=== PATIENT | male | born 1950 | race Caucasian/White ===

== ENCOUNTER 2021-07-26 06:00 | Day surgery (SDC) | payer OTHER, SELFPAY ==
[~2021-07-26] VITALS: Ht 177.8 cm; Wt 102.1 kg
[2021-07-26] MEDS ORDERED: fentaNYL CITRATE/PF 100 MCG/2 ML AMP ONE (06:55)
[2021-07-26] MEDS ORDERED: MIDAZOLAM HCL 5 MG/5 ML VIAL ONE (06:56)
[2021-07-26 10:19] VITALS: BP_SYST 126
== END 2021-07-26 08:30 | disposition home or self-care (01) ==
LOC: SDS 06:00 → SMU 06:00 → SDS 08:30
PROVIDERS: ATTEND Internal Medicine Gastroenterology
DX: I85.10 Secondary esophageal varices without bleeding (principal); B19.20 Unspecified viral hepatitis C without hepatic coma; K31.9 Disease of stomach and duodenum, unspecified; Z20.822 Contact with and (suspected) exposure to COVID-19; Z79.899 Other long term (current) drug therapy
CPT/HCPCS: 43239; 43244; 82962; 88305; 88312; 88313; 99152; G0378; J2250; J3010; U0003

== ENCOUNTER 2022-04-06 05:40 | Day surgery (SDC) | payer OTHER ==
[~2022-04-06] VITALS: Ht 177.8 cm; Wt 102.1 kg
[2022-04-06] MEDS ORDERED: MEPERIDINE 100 MG INJ. 100 MG/ML VIAL ONE (07:26)
[2022-04-06] MEDS ORDERED: MIDAZOLAM HCL 5 MG/5 ML VIAL ONE (07:27)
[2022-04-06] MEDS ORDERED: DIPHENHYDRAMINE INJ 50 MG/ML VIAL ONE (08:20)
[2022-04-06 10:07] VITALS: BP_SYST 140
== END 2022-04-06 10:06 | disposition home or self-care (01) ==
LOC: SMU 05:40 → SOR 05:40
PROVIDERS: ATTEND Internal Medicine Gastroenterology
DX: I85.00 Esophageal varices without bleeding (principal); K29.50 Unspecified chronic gastritis without bleeding; K31.89 Other diseases of stomach and duodenum; I48.91 Unspecified atrial fibrillation; E11.9 Type 2 diabetes mellitus without complications; Z20.822 Contact with and (suspected) exposure to COVID-19; Z79.899 Other long term (current) drug therapy
CPT/HCPCS: 36415 ×2; 43244; 43239; 88305; 88312; 88313; 99152; 87426; U0003; G0378; J1200; J2250; J2175

== ENCOUNTER 2022-10-06 00:17 | Inpatient (IN) | payer OTHER ==
[~2022-10-06] VITALS: Ht 177.8 cm; Wt 99.8 kg
[2022-10-06 00:25] VITALS: BP_SYST 90
--- NOTE | 2022-10-06 00:34 | NUR ---
Note undone in EDM - 10/06/22 at 0040 by [id number] Patient triaged and placed in RM 4. VSS and patient appears in no acute distress at this time. Accompanied by and MD notified of need for MSE. REPORT GIVEN TO АННА YEAGER
--- NOTE | 2022-10-06 00:40 | NUR ---
Patient triaged and placed in RM 4. VSS and patient appears in no acute distress at this time. Accompanied by and MD notified of need for MSE. REPORT GIVEN TO SHIRA YEAGER
[2022-10-06] MEDS ORDERED: NACL 0.9% 1,000 ML IV ONE ×2 (01:15→02:45)
[2022-10-06 01:45] LABS: INR 1.2 (0.80-1.20); PROTHROMBIN TIME 12.2 SECS (9.5-12.5)
[2022-10-06 01:57] LABS: ANION GAP 15 (5-15); CALCIUM 10.1 mg/dL (8.4-11.0); CHLORIDE 88 mmol/L (98-107); CREATININE 2.31 mg/dL (0.55-1.30); GLUCOSE 146 mg/dL (70-99); UREA NITROGEN, BLOOD 34 mg/dL (8-21)
[2022-10-06 02:01] LABS: BASOPHILS % (AUTO) 0.7 % (0.0-2.0); EOSINOPHILS # (AUTO) 0.1 K/uL (0.0-0.4); EOSINOPHILS % (AUTO) 1.7 % (0.0-4.0); HEMATOCRIT 34.6 % (36-54); HEMOGLOBIN 12.5 g/dL (14.0-18.0); LYMPHOCYTES # (AUTO) 0.8 K/uL (1.0-5.5); LYMPHOCYTES % (AUTO) 12.4 % (20.5-51.5); MEAN CORPUSCULAR HEMOGLOBIN 34 pg (27-31); MEAN CORPUSCULAR HGB CONC 36 % (32-36); MEAN CORPUSCULAR VOLUME 93 fL (79.0-98.0); MONOCYTES % (AUTO) 15.1 % (1.7-9.3); NEUTROPHILS # (AUTO) 4.7 K/uL (1.8-7.7); NEUTROPHILS % (AUTO) 70.1 % (40.0-70.0); PLATELET COUNT (AUTO) 193 K/uL (130-430); RED BLOOD CELL COUNT(AUTO) 3.72 MIL/uL (4.2-6.2); WHITE BLOOD COUNT (AUTO) 6.7 K/uL (4.8-10.8)
[2022-10-06 02:03] LABS: ALANINE AMINOTRANSFERASE 36 U/L (12-78); ALBUMIN 3.5 g/dL (3.4-4.8); ASPARTATE AMINOTRANSFERASE 60 U/L (10-37); TOTAL BILIRUBIN 2.2 mg/dL (0.0-1.0)
[2022-10-06] MEDS ORDERED: VANCOMYCIN HCL 1,000 MG in NS 250 ML IV ONE (02:30)
[2022-10-06] MEDS ORDERED: PIPERACILLIN/TAZO 3.375 GM in NS 50 ML IV ONE (02:30)
[2022-10-06] MEDS ORDERED: VANCOMYCIN HCL 1000 MG/VIAL IV ONE (02:32)
[2022-10-06] MEDS ORDERED: PIPERACILLIN/TAZOBACTAM 3.375 GM/VIAL (ZOSYN) IV ONE (02:32)
--- NOTE | 2022-10-06 04:45 | NUR ---
ADMIT NOTE Received pt from ER to the floor with a diagnosis of sepsis. Admission process initiated. Patient oriented to pain management, safety and call light-teach back done. AOx4. Ambulatory with steady gait, no dizziness noted. at bedside.
[2022-10-06 05:02] VITALS: BP_SYST 116
[2022-10-06 05:12] LABS: BILIRUBIN,URINE NEGATIVE (NEGATIVE); COLOR,URINE YELLOW (YELLOW); GLUCOSE,URINE NEGATIVE (NEGATIVE); KETONES,URINE NEGATIVE (NEGATIVE); LEUKOCYTE ESTERASE ,URINE NEGATIVE (NEGATIVE); NITRITE, URINE NEGATIVE (NEGATIVE); PH,URINE 6.5 (5.0-8.0); PROTEIN URINE NEGATIVE (NEGATIVE)
[2022-10-06] MEDS: NACL 0.9% 1,000 ML IV SCH ×3 (05:14→22:00)
[2022-10-06] MEDS ORDERED: PIPERACILLIN/TAZOBACTAM 2.25 GM VIAL IV ONE (05:47)
[2022-10-06 05:50] LABS: BLOOD, URINE TRACE (NEGATIVE); CLARITY/URINE HAZY (CLEAR)
[2022-10-06 05:51] LABS: BACTERIA,URINE None Seen /HPF (None Seen); RBC,URINE 0-3 /HPF (0-3); WBC,URINE 0-3 /HPF (0-3)
[2022-10-06] MEDS ORDERED: FURO-149 PO (05:59)
[2022-10-06] MEDS ORDERED: DILT240C91 PO (05:59)
[2022-10-06] MEDS ORDERED: METF-379 PO (05:59)
[2022-10-06] MEDS ORDERED: GLIP10TA11 PO (05:59)
[2022-10-06] MEDS ORDERED: SPIR50TA PO (05:59)
[2022-10-06] MEDS ORDERED: IRBE150T48 PO (05:59)
[2022-10-06] MEDS ORDERED: APIX2.5T PO (05:59)
[2022-10-06] MEDS ORDERED: ROSU20TA2 PO (05:59)
[2022-10-06] MEDS ORDERED: PIPERACILLIN/TAZO 2.25G/DEX-IS 50 ML IV SCH (06:00)
--- NOTE | 2022-10-06 07:30 | NUR ---
CLOSING Patient resting in bed, unlabored breathing on room air. IV fluids infusing. AOx4. Ambulated with steady gait to bathroom, no complaint of dizziness. Safety precautions in place. Endorsed to oncoming nurse.
--- NOTE | 2022-10-06 07:49 | NUR ---
OPENING NOTES: RECEIVED BEDSIDE SBAR FROM PM SHIFT NURSE, PATIENT IS RESTING WELL WITH EYES CLOSED IN BED, NO S/S OF ANY DISTRESS, NON LABOR BREATHING BED AT LOW AND LOCKED POSITION CALL LIGHT IN REACH, ALL SAFETY CHECKS DONE AND WILL DO THOUGHT THE DAY, WILL CONT TO MONITOR PATIENT THOUGHT OUT THE DAY PER ORDERS.
[2022-10-06 11:42] VITALS: BP_SYST 119
[2022-10-06] MEDS: PIPERACILLIN/TAZO 2.25G/DEX-IS 50 ML IV SCH ×2 (12:00→19:27)
[2022-10-06] MEDS ORDERED: FUROSEMIDE 20 MG TABLET PO SCH (12:45)
[2022-10-06] MEDS ORDERED: FUROSEMIDE 20 MG TABLET PO ONE (12:45)
[2022-10-06 16:10] VITALS: BP_SYST 100
--- NOTE | 2022-10-06 19:25 | NUR ---
CHANGE OF SHIFT; endorsed by dy shift, no distress. call light within reach.
[2022-10-06 20:30] VITALS: BP_SYST 85
--- NOTE | 2022-10-06 20:30 | NUR ---
NOTES: tech at bedside to do Renal US.
[2022-10-06 20:40] VITALS: BP_SYST 114
[2022-10-06] MEDS: FUROSEMIDE 20 MG TABLET PO SCH (21:00)
--- NOTE | 2022-10-06 21:10 | NUR ---
NOTES: called Dr. Pacheco electrical subcontractor for Dr. loo, IVF nfluid, pt. been eating and drinking. IV lock.
--- NOTE | 2022-10-06 22:02 | NUR ---
NOTES: called back Dr. Pacheco regarding NA level and low BP, will resume IV NS @ 50 cc/hr.
[2022-10-07] VITALS (9 sets, daily range): BP systolic 101–129
[2022-10-07] MEDS: PIPERACILLIN/TAZO 2.25G/DEX-IS 50 ML IV SCH ×2 (00:18→06:08)
--- NOTE | 2022-10-07 00:25 | NUR ---
NOTES: pt. awakened for IV antibiotic. pt. went to the restroom and ambulated.
--- NOTE | 2022-10-07 02:53 | NUR ---
NOTES: pt. awakened, IVF alarming. no complaints manifested. call light within reach.
--- NOTE | 2022-10-07 05:30 | NUR ---
NOTES: am blood draw. IV site patent on rt. forearm.
--- NOTE | 2022-10-07 06:40 | NUR ---
CLOSING NOTES; for further assistance. IVF patent on rt. forearm. DV IV site on left antecubital. needs attended. will endorse to incoming shift.call light within reach.
[2022-10-07 07:14] LABS: ALANINE AMINOTRANSFERASE 39 U/L (12-78); ALBUMIN 3.2 g/dL (3.4-4.8); ANION GAP 8 (5-15); ASPARTATE AMINOTRANSFERASE 54 U/L (10-37); CALCIUM 9.1 mg/dL (8.4-11.0); CHLORIDE 97 mmol/L (98-107); CREATININE 1.38 mg/dL (0.55-1.30); GLUCOSE 62 mg/dL (70-99); UREA NITROGEN, BLOOD 23 mg/dL (8-21)
--- NOTE | 2022-10-07 07:30 | NUR ---
Initial notes Received patient AAAOx4, no c/o pain/SOB, respiration even and unlabored, no sings of distress noted. IV right forearm #22g patent, no signs of infiltration. Ambulate as needed to restroom. Continue to maintain safety precaution, bed in low position, call light w/in reached.
[2022-10-07 07:35] LABS: VANCOMYCIN,RANDOM < 0.1 ug/mL
[2022-10-07] MEDS: FUROSEMIDE 20 MG TABLET PO SCH ×2 (08:14→21:00)
[2022-10-07] MEDS ORDERED: VANCOMYCIN HCL 1,000 MG in NS 250 ML IV SCH (09:00)
[2022-10-07 09:54] LABS: HEMATOCRIT 34.5 % (36-54); HEMOGLOBIN 12.4 g/dL (14.0-18.0); MEAN CORPUSCULAR HEMOGLOBIN 34 pg (27-31); MEAN CORPUSCULAR HGB CONC 36 % (32-36); MEAN CORPUSCULAR VOLUME 95 fL (79.0-98.0); PLATELET COUNT (AUTO) 141 K/uL (130-430); RED BLOOD CELL COUNT(AUTO) 3.62 MIL/uL (4.2-6.2); RED CELL DISTRIBUTION WIDTH 15.4 % (9.0-15.0); WHITE BLOOD COUNT (AUTO) 4.9 K/uL (4.8-10.8)
[2022-10-07 10:11] LABS: ATYPICAL LYMPHOCYTES % 2 % (0-0); LYMPHOCYTES % (MANUAL) 20 % (20-46)
[2022-10-07 10:12] LABS: BASOPHILS % (MANUAL) 0 % (0-2); EOSINOPHILS % (MANUAL) 7 % (0-7); MONOCYTES % (MANUAL) 15 % (0-11)
--- NOTE | 2022-10-07 11:00 | NUR ---
Patient sitting up in bed, no c/o pain/SOB, no signs of distress, safety secured
[2022-10-07] MEDS ORDERED: REPAGLINIDE 1 MG TABLET (PRANDIN) PO ONE (12:30)
[2022-10-07] MEDS ORDERED: SPIRONOLACTONE 25 MG TABLET (ALDACTONE) PO ONE (12:30)
[2022-10-07] MEDS: INSULIN REGULAR, HUMAN 100 UNITS/ML, 3 ML VIAL (humuLIN R) SUBCUT PRN (12:43)
--- NOTE | 2022-10-07 13:04 | NUR ---
Dietitian Recommendations * Ordered CCHO (low CHO-45g) diet * Encourage good PO intake GS, MPH, RD Please refer to RD Assessment for further details. Thanks! Addendum: 10/07/22 at [address] Amended: Links added.
[2022-10-07] MEDS ORDERED: REPAGLINIDE 1 MG TABLET (PRANDIN) PO SCH (17:00)
[2022-10-07] MEDS: NACL 0.9% 1,000 ML IV SCH (18:00)
--- NOTE | 2022-10-07 19:00 | NUR ---
No change in condition, no c/o pain/SOB, maintain safety precaution during shift, will endorse.
--- NOTE | 2022-10-07 19:35 | NUR ---
OPENING NOTE PT IS SITTING IN BED WITH EYES OPEN. NO APPARENT SIGNS OF DISTRESS NOTED AT THIS TIME. BED IN LOWEST POSITION WITH SAFETY PRECAUTIONS IN PLACE. IV FLUIDS RUNNING ORDERED. CALL LIGHT WITHIN REACH, PT VERBALIZED HOW TO USE IT.
--- NOTE | 2022-10-07 20:30 | NUR ---
CRITICAL LAB PT BLOOD SUGAR 48, PT AWAKE/ALERTORIENTED Addendum: 10/07/22 at 2137 by Luis Alberto Miramontes LVN NO SIGNS OF DISTRESS. PT GIVEN 12 OZ ORANGE JUICE. BLOOD SUGAR RECHECKED AT 0 WITH A READING OF 130. DR MARINA PAGED AT [phone]. AWAITING CALL BACK.
[2022-10-07] MEDS: SPIRONOLACTONE 25 MG TABLET (ALDACTONE) PO SCH (21:21)
--- NOTE | 2022-10-07 23:27 | NUR ---
CRITICAL LAB PT WAS BLOOD SUGAR WAS TESTED AT 2304, CRITICAL LEVEL OF 52. HYPOGLYCEMIC PROTOCOL INITIATED. PT GIVEN 8 OZ JUICE AND A SUGAR PACKET. BS RECHECKED AT 15 MINUT[address] AND WAS 132. DR ANT MARINA CALLED AT 2324 AT [phone]. AWAITING CALL BACK. Addendum: 10/08/22 at 0128 by Luis Alberto Miramontes LVN DR MARINA CELL [phone] CALLED AT 0015. NO ANSWER. DR MARINA EXCHANGE [phone] CALLED AT 0045. NO ANSWER. PT GIVEN HALF A SANDWICH AND CRACKERS.
[2022-10-07 23:46] LABS: CHLORIDE,URINE RANDOM 98 mmol/L (55-125)
[2022-10-08] VITALS: BP_SYST 109
[2022-10-08] MEDS ORDERED: GLUCOSE (DEXTROSE) ORAL GEL -Adults PO PRN (03:00)
[2022-10-08] MEDS ORDERED: D5W 1,000 ML IV PRN (03:00)
[2022-10-08] MEDS ORDERED: DEXTROSE 50% JECT 50 ML DISP.SYRIN IVP PRN (03:00)
[2022-10-08] MEDS ORDERED: D5/0.45 NS 1,000 ML IV SCH (05:00)
[2022-10-08] MEDS ORDERED: COMMUNICATION ORDER XX ONE (06:00)
[2022-10-08 06:24] LABS: ANION GAP 6 (5-15); CALCIUM 8.6 mg/dL (8.4-11.0); CHLORIDE 100 mmol/L (98-107); CREATININE 1.18 mg/dL (0.55-1.30); GLUCOSE 116 mg/dL (70-99); UREA NITROGEN, BLOOD 19 mg/dL (8-21)
--- NOTE | 2022-10-08 07:24 | NUR ---
CLOSING NOTE PT IS LYING IN BED WITH EYES CLOSED. NO APPARENT DISTRESS NOTED AT THIS TIME. BED IN LOWEST POSITION WITH SAFETY PRECAUTIONS IN PLACE. CALL LIGHT WITHIN REACH. IV FLUIDS RUNNING ORDERED.
[2022-10-08 08:17] VITALS: BP_SYST 101
[2022-10-08 08:50] LABS: EOSINOPHILS # (AUTO) 0.2 K/uL (0.0-0.4); MONOCYTES # (AUTO) 0.7 K/uL (0.0-1.0); PLATELET COUNT (AUTO) 132 K/uL (130-430); WHITE BLOOD COUNT (AUTO) 4.2 K/uL (4.8-10.8)
[2022-10-08] MEDS: FUROSEMIDE 20 MG TABLET PO SCH (09:23)
[2022-10-08] MEDS: SPIRONOLACTONE 25 MG TABLET (ALDACTONE) PO SCH (09:24)
[2022-10-08 09:25] VITALS: BP_SYST 108
[2022-10-08] MEDS ORDERED: DAPA10TA PO (09:39)
[2022-10-08] MEDS ORDERED: SPIR25TA6 PO (09:39)
[2022-10-08 10:44] VITALS: BP_SYST 108
[2022-10-08 10:54] LABS: EOSINOPHILS % (AUTO) 5.8 % (0.0-4.0); HEMATOCRIT 33.8 % (36-54); LYMPHOCYTES # (AUTO) 0.8 K/uL (1.0-5.5); LYMPHOCYTES % (AUTO) 19.1 % (20.5-51.5); MEAN CORPUSCULAR HEMOGLOBIN 34 pg (27-31); MEAN CORPUSCULAR HGB CONC 36 % (32-36); MEAN CORPUSCULAR VOLUME 96 fL (79.0-98.0); MONOCYTES % (AUTO) 16.6 % (1.7-9.3); RED BLOOD CELL COUNT(AUTO) 3.53 MIL/uL (4.2-6.2); RED CELL DISTRIBUTION WIDTH 15.1 % (9.0-15.0)
[2022-10-08 10:55] LABS: NEUTROPHILS % (AUTO) 57.9 % (40.0-70.0)
[2022-10-08 10:56] LABS: BASOPHILS % (AUTO) 0.6 % (0.0-2.0)
[2022-10-08 10:57] LABS: NEUTROPHILS # (AUTO) 2.4 K/uL (1.8-7.7)
[2022-10-08 12:00] VITALS: BP_SYST 99
[2022-10-08] MEDS: INSULIN REGULAR, HUMAN 100 UNITS/ML, 3 ML VIAL (humuLIN R) SUBCUT PRN (12:22)
--- NOTE | 2022-10-08 13:36 | NUR ---
Discharge note Patient discharge home per MD order. AAAOx4, no signs of distress, no c/o SOB/pain. ID band removed. IV catheter removed, intact and dressing applied, no active bleeding. All belongings sent with patient. Medication instruction given to patent to flower picker at preferred pharmacy, educational material given per medical diagnosis, patient verbalized understanding. Ambulatory with steady gait for discharge to home.
[2022-10-08 14:02] LABS: BASOPHILS # (AUTO) 0.1 K/uL (0.0-0.2); BASOPHILS % (AUTO) 1.9 % (0.0-2.0); EOSINOPHILS # (AUTO) 0.2 K/uL (0.0-0.4); EOSINOPHILS % (AUTO) 5.8 % (0.0-4.0); HEMOGLOBIN 13.1 g/dL (14.0-18.0); LYMPHOCYTES # (AUTO) 0.7 K/uL (1.0-5.5); LYMPHOCYTES % (AUTO) 18.3 % (20.5-51.5); MEAN CORPUSCULAR HEMOGLOBIN 34 pg (27-31); MEAN CORPUSCULAR HGB CONC 36 % (32-36); MEAN CORPUSCULAR VOLUME 95 fL (79.0-98.0); MONOCYTES # (AUTO) 0.7 K/uL (0.0-1.0); MONOCYTES % (AUTO) 16.7 % (1.7-9.3); NEUTROPHILS # (AUTO) 2.3 K/uL (1.8-7.7); NEUTROPHILS % (AUTO) 57.3 % (40.0-70.0); PLATELET COUNT (AUTO) 143 K/uL (130-430); RED BLOOD CELL COUNT(AUTO) 3.81 MIL/uL (4.2-6.2); RED CELL DISTRIBUTION WIDTH 15.3 % (9.0-15.0); WHITE BLOOD COUNT (AUTO) 4.1 K/uL (4.8-10.8)
== END 2022-10-08 13:36 | disposition home or self-care (01) | DRG 391 ==
LOC: SED 00:17 → SMU 03:13 → STU 04:25
PROVIDERS: ADMIT Internal Medicine; ATTEND Internal Medicine
DX: A08.4 Viral intestinal infection, unspecified (principal); N17.0 Acute kidney failure with tubular necrosis; E87.1 Hypo-osmolality and hyponatremia; I10 Essential (primary) hypertension; E11.9 Type 2 diabetes mellitus without complications; I48.0 Paroxysmal atrial fibrillation; E78.5 Hyperlipidemia, unspecified; K74.60 Unspecified cirrhosis of liver; Z20.822 Contact with and (suspected) exposure to COVID-19; Z79.01 Long term (current) use of anticoagulants
CPT/HCPCS: 36415; 71045; 76770; 80048; 80053; 80202; 81000; 82435; 82570; 82962; 83605; 84302; 84484; 84540; 85007; 85025; 85027; 85610-TC; 85730-TC; 87040; 87086; 93005; 96361; 96365; 96368; 99291; G0378; J2543; J3370; J7050

== ENCOUNTER 2023-06-21 18:06 | Emergency (ER) | payer OTHER ==
[~2023-06-21] VITALS: Ht 177.8 cm; Wt 104.3 kg
[~2023-06-21 18:06] MED LIST: APIX2.5T PO; DAPA10TA PO; DILT240C91 PO; GLIP10TA11 PO; IRBE150T48 PO; ROSU20TA2 PO; SPIR25TA6 PO
[2023-06-21 18:10] VITALS: BP_SYST 138; PULSE 83; RESP 18; TEMP 98; O2SAT 97
[2023-06-21 19:07] LABS: HEMATOCRIT 40.1 % (36-54); HEMOGLOBIN 13.2 g/dL (14.0-18.0); MEAN CORPUSCULAR HEMOGLOBIN 32 pg (27-31); MEAN CORPUSCULAR HGB CONC 33 % (32-36); MEAN CORPUSCULAR VOLUME 96 fL (79.0-98.0); PLATELET COUNT (AUTO) 94 K/uL (130-430); RED BLOOD CELL COUNT(AUTO) 4.16 MIL/uL (4.2-6.2); RED CELL DISTRIBUTION WIDTH 17.6 % (9.0-15.0); WHITE BLOOD COUNT (AUTO) 19.7 K/uL (4.8-10.8)
[2023-06-21 19:10] LABS: ALANINE AMINOTRANSFERASE 42 U/L (12-78); ALBUMIN 2.7 g/dL (3.4-4.8); ANION GAP 10 (5-15); ASPARTATE AMINOTRANSFERASE 75 U/L (10-37); CALCIUM 9.1 mg/dL (8.4-11.0); CARBON DIOXIDE 24 mmol/L (23-29); CHLORIDE 98 mmol/L (98-107); CREATININE 1.39 mg/dL (0.55-1.30); GLUCOSE 251 mg/dL (74-106); POTASSIUM 4.6 mmol/L (3.5-5.1); SODIUM SERUM 132 mmol/L (136-145); TOTAL BILIRUBIN 2.3 mg/dL (0.0-1.0); TOTAL PROTEIN, SERUM 5.7 g/dL (6.4-8.3); UREA NITROGEN, BLOOD 15 mg/dL (8-21)
[2023-06-21 19:13] LABS: LIPASE 52 U/L (16-77)
[2023-06-21 20:24] LABS: ATYPICAL LYMPHOCYTES % 43 % (0-0); BAND % (MANUAL) 0 % (0-6); BASOPHILS % (MANUAL) 0 % (0-2); EOSINOPHILS % (MANUAL) 6 % (0-7); LYMPHOCYTES % (MANUAL) 26 % (20-46); MONOCYTES % (MANUAL) 4 % (0-11)
[2023-06-21 20:25] LABS: ANISOCYTOSIS 1+; OVALOCYTES FEW; PLATELET ESTIMATE DECREASED (ADEQUATE); TEAR DROP CELLS FEW
[2023-06-21 22:47] LABS: BILIRUBIN,URINE NEGATIVE (NEGATIVE); BLOOD, URINE NEGATIVE (NEGATIVE); CLARITY/URINE CLEAR (CLEAR); COLOR,URINE YELLOW (YELLOW); GLUCOSE,URINE NEGATIVE (NEGATIVE); KETONES,URINE NEGATIVE (NEGATIVE); LEUKOCYTE ESTERASE ,URINE NEGATIVE (NEGATIVE); NITRITE, URINE NEGATIVE (NEGATIVE); PH,URINE 6.5 (5.0-8.0); PROTEIN URINE NEGATIVE (NEGATIVE)
[2023-06-21 22:50] VITALS: BP_SYST 120; PULSE 73; RESP 18; TEMP 98; O2SAT 97
== END 2023-06-21 22:50 | disposition home or self-care (01) ==
LOC: SED 18:06
DX: D72.829 Elevated white blood cell count, unspecified (principal); I10 Essential (primary) hypertension; E11.9 Type 2 diabetes mellitus without complications; Z79.899 Other long term (current) drug therapy
CPT/HCPCS: 36415; 76376; 80053; 81001; 81003; 83690; 84484; 85007; 85027; 99284